=== PATIENT | female | born 1990 | race Caucasian/White ===

== ENCOUNTER → 2021-10-19 | Outpatient (CLI) | payer BC | LOC: COL.RAD 13:36 | DX: N83.201 Unspecified ovarian cyst, right side (principal); R11.2 Nausea with vomiting, unspecified | CPT/HCPCS: Q9967 ==

== ENCOUNTER → 2021-10-24 | Outpatient (CLI) | payer BC | LOC: COL.RAD 08:35 | DX: K76.0 Fatty (change of) liver, not elsewhere classified (principal) ==

== ENCOUNTER 2022-03-06 15:22 | Emergency (ER) | payer BC ==
[~2022-03-06] VITALS: Ht 162.6 cm; Wt 84.1 kg
[2022-03-06 15:38] VITALS: BP 136/87; TEMP 98.6
[2022-03-06 17:06] VITALS: PULSE 90
== END 2022-03-06 17:07 | disposition home or self-care (01) ==
LOC: COL.ER 15:22
DX: R05.9 Cough, unspecified (principal)

== ENCOUNTER 2023-12-14 17:35 | Emergency (ER) | payer BC ==
[~2023-12-14] VITALS: Ht 160 cm; Wt 80.0 kg
[~2023-12-14 17:35] MED LIST: LOPRESSOR 225 MG/TAB PO
[2023-12-14 17:41] VITALS: TEMP 98.2
[2023-12-14] MEDS ORDERED: ASPIRIN 81M81 MG/TA2 PO (17:46)
[2023-12-14] MEDS ORDERED: TOPROL XL 25MG25 MG PO (17:46)
[2023-12-14 20:32] LABS: BASO % 0.2 % (0.0-2.0); EOS # 0.1 K/mm3 (0.0-0.7); EOS % 0.9 % (0.0-4.0); GRAN # 6.3 K/mm3 (1.4-6.5); GRAN % 66.5 % (42.2-75.2); HEMOGLOBIN 11.9 g/dl (12.5-16.0); LYMPH # 2.2 K/mm3 (1.2-3.4); LYMPH % 23.2 % (20.0-51.0); MEAN CELL VOLUME 82 fl (80.0-100.0); MEAN CORPUSCULAR HEMOGLOBIN 30 pg (27-31); MEAN CORPUSCULAR HGB CONC 36 g/dl (33.0-37.0); MEAN PLATELET VOLUME 10.3 fl (7.4-10.4); MONO # 0.9 K/mm3 (0.1-0.6); MONO % 8.9 % (1.7-9.3); PLATELET COUNT 230 K/mm3 (130-400); RED BLOOD COUNT 3.98 M/mm3 (4.10-5.30)
[2023-12-14 20:35] LABS: HEMATOCRIT 32.8 % (37.0-47.0)
[2023-12-14 20:48] LABS: ANION GAP 10 mmol/L (7-16); BLOOD UREA NITROGEN 11 mg/dL (7-19); CALCIUM 10.1 mg/dL (8.4-10.2); CARBON DIOXIDE 21 mmol/L (22-29); CHLORIDE 107 mmol/L (98-107); CREATININE, serum 0.75 mg/dL (0.57-1.11); GLUCOSE 96 mg/dL (70-99); MAGNESIUM 1.9 mg/dL (1.6-2.6); POTASSIUM 3.9 mmol/L (3.5-4.5); SODIUM 138 mmol/L (136-145)
[2023-12-14 21:04] LABS: TROPONIN-I < 0.010 ng/mL (0.00-0.033)
[2023-12-14 21:52] VITALS: BP 120/60; PULSE 84
== END 2023-12-14 21:52 | disposition home or self-care (01) ==
LOC: COL.ER 17:35
PROVIDERS: Internal Medicine
DX: O99.412 Diseases of the circulatory system complicating pregnancy, second trimester (principal); I49.3 Ventricular premature depolarization; O26.892 Other specified pregnancy related conditions, second trimester; R55 Syncope and collapse; Z79.899 Other long term (current) drug therapy; Z3A.19 19 weeks gestation of pregnancy

== ENCOUNTER 2024-04-21 17:03 | Inpatient (IN) | payer BC ==
[~2024-04-21] VITALS: Ht 160 cm; Wt 95.0 kg
[2024-04-21] VITALS (19 sets, daily range): BP systolic 104–155; BP diastolic 55–85; PULSE 75–113; TEMP 98–98.3
[~2024-04-21 17:03] MED LIST changes: +ASPIRIN 81M81 MG/TA2 PO; +PRENATAL TABLET PO; +TOPROL XL 25MG25 MG PO
[2024-04-21] MEDS ORDERED: LR 1,000 ML IV SCH (18:00)
[2024-04-21 18:02] LABS: BASO % 0.3 % (0.0-2.0); EOS # 0.1 K/mm3 (0.0-0.7); EOS % 0.6 % (0.0-4.0); GRAN # 6.7 K/mm3 (1.4-6.5); GRAN % 65.9 % (42.2-75.2); HEMATOCRIT 39.8 % (37.0-47.0); HEMOGLOBIN 13.2 g/dl (12.5-16.0); LYMPH # 2.5 K/mm3 (1.2-3.4); LYMPH % 24.1 % (20.0-51.0); MEAN CELL VOLUME 82 fl (80.0-100.0); MEAN CORPUSCULAR HEMOGLOBIN 27 pg (27-31); MEAN CORPUSCULAR HGB CONC 33 g/dl (33.0-37.0); MEAN PLATELET VOLUME 11.2 fl (7.4-10.4); MONO # 0.9 K/mm3 (0.1-0.6); MONO % 8.8 % (1.7-9.3); PLATELET COUNT 247 K/mm3 (130-400); RED BLOOD COUNT 4.84 M/mm3 (4.10-5.30); REDCELL DISTRIBUTION WIDTH-CV 13.5 % (11.5-14.5)
[2024-04-21] MEDS ORDERED: ROPivacaine PF 0.2% 200 ML IV ONE (18:14)
[2024-04-21] MEDS ORDERED: Ondansetron 4 MG/2 ML VIAL IV PRN (18:15)
[2024-04-21] MEDS ORDERED: ePHEDrine 50 MG/10 ML VIAL IV PRN (18:15)
[2024-04-21] MEDS ORDERED: Naloxone 0.4 MG/ML VIAL IV PRN ×2 (18:15→23:45)
[2024-04-21] MEDS ORDERED: diphenhydrAMINE 25 MG CAP PO PRN (18:15)
[2024-04-21] MEDS ORDERED: diphenhydrAMINE 50 MG/ML 1 ML VIAL IV PRN (18:15)
--- NOTE | 2024-04-21 18:15 | NUR ---
175- PATIENT SITTING ON SIDE OF BED FOR EPIDURAL PLACEMENT. TOE ERIC IN ROOM EXPLAINING PROCEDURE. DIFFICULTY TRACING FHR DUE TO MATERNAL POSITION. 180- SINGLE SOT ADMINISTERED BY TEO ERIC. 180- PATIENT REPOSITIONED TO WEDGED RIGHT. THIS RN REMAINS AT BEDSIDE TO MONITOR VITAL SIGNS. 1814- PATIENT REPORTS FEELING RECTAL PRESSURE, SVE 9/100/0. NOTIFIED.
--- NOTE | 2024-04-21 18:20 | NUR ---
Report received from KAMLESH Cruz. Pt laying comfortable with epidural. Denies feeling any pain, states she is just having pressure. 182: Late deceleration noted with spontaneous return to baseline SVE AL/0. 1830: Pt repositioned to wedged right position. 183: Recurrent deep late decelerations noted SVE unchanged and pt repositioned to left lateral position. LR bolus infusing. 184: called and updated on pt's status and FHR strip. See physican notification. 184: Oxygen administered at 10L due to recurrent late decelerations. 1915: Chatman catheter attempted but unable to place due to fetus head being so low. SVE C/+2. Plan of care explained to pt, spouse and cone examiner who verbalize their understanding. Questions answered. 1923: Pushing with contractions explained to pt. Pt begins pushing with this RN, spouse and cone examiner at bedside. 1927: heart rate deceleration noted while pushing with this RN down to 60bpm at lowest point lasting 260 seconds with intermittent returns to baseline. 1929: SROM noted with pushing. Scant about of clear fluid noted. 1930: Pt stopped pushing and repositioned to left lateral. 1931: called and requested at hospital. Pt then repostioned to right lateral position. 1938: Pt pushed with this RN for one contraction. 1941: at bedside for delivery. Pt prepped and repositioned to footplates and begins pushing with provider. 1944: Oxygen taken off at this time. 1950: Spontaneous delivery of viable male infant by Dr. Montero. Infant to mother's chest where dried and stimulated by nursery RN. Care of infant assummed by Debbie WHITLOCK. 1952: Spontaneous delivery of intact placenta by . Pitocin started at 333mus/hr per protocol. Straight catherization completed. Superficial left vaginal laceration repaired by . Pericare provided and pt repositioned in bed. Pads changed. Plan of care explained and safety precautions explained to pt who verablizes her understanding. Call light within reach.
[2024-04-21 18:31] LABS: ALBUMIN 3.2 g/dL (3.5-5.0); BILIRUBIN,TOTAL 0.3 mg/dL (0.2-1.2); CALCIUM 10.5 mg/dL (8.4-10.2); CREATININE, serum 0.78 mg/dL (0.57-1.11); POTASSIUM 3.7 mEq/L (3.5-4.5); TOTAL PROTEIN 7.4 g/dl (6.2-8.1)
[2024-04-21] MEDS ORDERED: Magnes Hydrox (MOM) 80 MG/ML 30 ML CUP PO PRN (20:15)
[2024-04-21] MEDS ORDERED: Loratadine 10 MG TAB PO PRN (20:15)
[2024-04-21] MEDS ORDERED: traZODone 50 MG TAB PO PRN (21:00)
[2024-04-21] MEDS ORDERED: Witch Hazel 50% Pads Bulk TUB TP PRN (23:45)
[2024-04-21] MEDS ORDERED: Phenylephrine/Mineral Oil/Petrolatum 57 GM TUBE RC PRN (23:45)
[2024-04-21] MEDS ORDERED: Mag/Al Hydrox/Simeth Susp 30 ML CUP PO PRN (23:45)
[2024-04-21] MEDS ORDERED: oxyCODONE 5 MG TAB PO PRN (23:45)
[2024-04-21] MEDS ORDERED: Acetaminophen 500 MG TAB PO SCH (23:45)
[2024-04-21] MEDS ORDERED: Ibuprofen 800 MG TAB PO SCH (23:45)
[2024-04-21] MEDS ORDERED: Measles/Mumps/Rubella Virus Vaccine Live w Diluent 0.5 ML VIAL SQ SCH (23:45)
[2024-04-22] MEDS ORDERED: LR & Oxytocin 500 ML IV SCH (01:30)
[2024-04-22 03:30] VITALS: BP 121/69; PULSE 86; TEMP 98.1
[2024-04-22] MEDS ORDERED: Sennosides/Docusate 8.6-50 MG TAB PO SCH (08:00)
[2024-04-22 09:00] VITALS: BP 119/73; PULSE 82
[2024-04-22] MEDS ORDERED: MOTRIN 800800 MG/TAB PO (09:01)
--- NOTE | 2024-04-22 12:29 | NUR ---
Data: Spiritual Care visit attempted during Battery Technician rounds. Note on door stated consult was in progress. Assessment: None. Plan of Care: Chaplains will remain available as needed/requested while Patient is admitted to this hospital.
[2024-04-22 16:30] VITALS: BP 127/75; PULSE 89; TEMP 97.8
[2024-04-22 19:35] VITALS: BP 133/83; PULSE 48; TEMP 97.6
[2024-04-22 20:03] VITALS: PULSE 158; TEMP 100.6
[2024-04-23 07:15] VITALS: BP 122/71; PULSE 81; TEMP 97.9
== END 2024-04-23 13:10 | disposition home or self-care (01) | DRG 807 ==
LOC: LDRO 17:03 → LDR 17:47 → OB 17:47
PROVIDERS: Obstetrics & Gynecology; ADMIT Obstetrics & Gynecology
PROC: 10E0XZZ Delivery of Products of Conception, External Approach (ICD-10-PCS; principal; 2024-04-21)
PROC: 0UQGXZZ Repair Vagina, External Approach (ICD-10-PCS; 2024-04-21)
DX: O69.81X0 Labor and delivery complicated by cord around neck, without compression, not applicable or unspecified (principal); Z37.0 Single live birth; Z3A.38 38 weeks gestation of pregnancy; O70.0 First degree perineal laceration during delivery; R00.8 Other abnormalities of heart beat; O90.89 Other complications of the puerperium, not elsewhere classified
CPT/HCPCS: J2590; J2795; J7120